=== PATIENT | male | born 1940 | race Caucasian/White ===

== ENCOUNTER 2016-11-11 15:45 | Emergency (ER) | payer MEDICARE, OTHER, SELFPAY ==
[2016-11-11 16:34] LABS: CHLORIDE,CL 105 mmol/L (98-107); SODIUM,NA 139 mmol/L (136-145)
[2016-11-11] MEDS ORDERED: Ketorolac 30 MG/ML SDV IVPUSH ONE (16:39)
[2016-11-11] MEDS ORDERED: methylPREDNISolone Sodium Succinate 125 MG/2 ML SDV IVPUSH ONE (16:40)
--- NOTE | 2016-11-11 16:46 | EDM.PDOC ---
ED HPI GENERAL MEDICAL PROBLEM - General Chief Complaint: Chest Pain Stated Complaint: chest pain Time Seen by Provider: 11/11/16 16:05 Source of Information: Reports: Patient History Limitations: Reports: No Limitations - History of Present Illness Onset: Today, Gradual Duration: Hour(s):, Intermittent Location: Reports: Chest Quality: Reports: Ache Severity: Moderate Worsens with: Reports: Other (palpation), Movement Associated Symptoms: Reports: No Other Symptoms - Related Data Allergies Allergy/AdvReac Type Severity Reaction Status Date / Time fluvoxamine Allergy Cannot Verified 11/11/16 16:20 Remember lisinopril Allergy Cannot Verified 11/11/16 16:20 Remember Penicillins Allergy Cannot Verified 11/11/16 16:20 Remember Home Meds: Home Meds Acetaminophen 650 mg PO Q4H PRN 11/11/16 [History] Albuterol Sulfate [Proair Respiclick] 2 inh INH Q6H PRN 11/11/16 [History] Bisacodyl 10 mg RECTAL DAILY PRN 11/11/16 [History] Bisacodyl [Dulcolax] 5 mg PO DAILY PRN 11/11/16 [History] Budesonide/Formoterol Fumarate [Symbicort 160-4.5 Mcg Inhaler] 2 inh INH BID [History] Cholecalciferol (Vitamin D3) [D3 Dots] 2,000 units PO DAILY 11/11/16 [History] Diltiazem HCl [Diltiazem ER] 120 mg PO DAILY 11/11/16 [History] Finasteride 5 mg PO DAILY 11/11/16 [History] Furosemide [Lasix] 80 mg PO DAILY 11/11/16 [History] Hydrocodone/Acetaminophen [Hydrocodon-Acetaminophen 5-325] 1 - 2 tab PO Q4H PRN 11/11/16 [History] Lidocaine 4% [Xylocaine 4% Top Soln] 1 dose TOP TID PRN 11/11/16 [History] Lidocaine 5% [Lidoderm 5%] 1 patch TOP DAILY PRN 11/11/16 [History] Magnesium Citrate [Citrate of Magnesia] 0.5 bottle PO BID PRN 11/11/16 [History] Magnesium Hydroxide [Milk of Magnesia] 30 ml PO BID PRN 11/11/16 [History] Methyl Salicylate/Menthol [Muscle Rub] 1 dose TOP Q6H PRN 11/11/16 [History] Metoprolol Succinate [Toprol XL] 25 mg PO DAILY 11/11/16 [History] Miconazole Nitrate 1 dose TOP BID PRN 11/11/16 [History] Omeprazole 20 mg PO DAILY 11/11/16 [History] Potassium Chloride 20 meq PO BID 11/11/16 [History] Sennosides [Senna] 1 tab PO BID 11/11/16 [History] Spironolactone [Aldactone] 25 mg PO DAILY 11/11/16 [History] Tamsulosin [Flomax] 0.4 mg PO BEDTIME 11/11/16 [History] Tiotropium [Spiriva HandiHaler] 1 inh INH DAILY 11/11/16 [History] Warfarin [Coumadin] 2.5 mg PO ASDIRECTED 11/11/16 [History] Warfarin [Coumadin] 5 mg PO DAILY 11/11/16 [History] atorvaSTATin [Lipitor] 20 mg PO BEDTIME 11/11/16 [History] buPROPion [Wellbutrin] 100 mg PO BID 11/11/16 [History] traZODone 50 mg PO BEDTIME 11/11/16 [History] ED ROS GENERAL - Review of Systems Review Of Systems: See Below Constitutional: Reports: No Symptoms HEENT: Reports: No Symptoms Respiratory: Reports: No Symptoms Cardiovascular: Reports: Chest Pain GI/Abdominal: Reports: No Symptoms Musculoskeletal: Reports: No Symptoms Skin: Reports: No Symptoms ED EXAM, GENERAL - Physical Exam Exam: See Below Exam Limited By: No Limitations General Appearance: No Apparent Distress Throat/Mouth: Normal Inspection Neck: Supple Respiratory/Chest: Lungs Clear, Other (Left chest wall tender with palpation) Cardiovascular: Regular Rate, Rhythm GI/Abdominal: Soft EKG INTERPRETATION Rhythm: a-fib (Chronic) Course - Orders/Labs/Meds Orders: Active Orders 24 hr Category Date Time Status EKG Documentation Completion [RC] ASDIRECTED Care 11/11/16 15:53 Active Chest 1V Frontal [CR] Stat Exams 11/11/16 15:53 Taken Labs: Laboratory Tests 11/11/16 11/11/16 Range/Units 15:10 16:10 WBC 9.1 (4.0-10.2) K/uL RBC 5.52 H (4.33-5.41) M/uL Hgb 15.9 D (13.1-16.8) g/dL Hct 47.6 (39.0-49.0) % MCV 86.2 (84.0-98.0) fL MCH 28.8 (28.2-33.3) pg MCHC 33.4 (31.7-36.0) g/dL RDW 15.0 H (11.2-14.1) % Plt Count 158 (150-350) K/uL Neut % (Auto) 85.5 H (45.0-80.0) % Lymph % (Auto) 6.3 L (10.0-50.0) % [place] % (Auto) 6.2 (2.0-14.0) % Eos % (Auto) 1.3 (0.0-5.0) % Baso % (Auto) 0.7 (0.0-2.0) % Neut # (Auto) 7.79 H (1.40-7.00) K/uL Lymph # (Auto) 0.57 (0.50-3.50) K/uL [place] # (Auto) 0.56 (0.00-1.00) K/uL Eos # (Auto) 0.12 (0.00-0.50) K/uL Baso # (Auto) 0.06 (0.00-0.20) K/uL Sodium 139 (136-145) mmol/L Potassium 4.7 (3.5-5.1) mmol/L Chloride 105 (98-107) mmol/L Carbon Dioxide 26.9 (21.0-32.0) mmol/L BUN 34 H (7-18) mg/dL Creatinine 1.48 H (0.51-1.17) mg/dL Est Cr Clr Drug Dosing TNP Estimated GFR (MDRD) 46 mL/min Glucose 168 H (74-106) mg/dL Calcium 8.6 (8.5-10.1) mg/dL Total Bilirubin 0.6 (0.2-1.0) mg/dL AST 13 L (15-37) U/L ALT 24 (12-78) U/L Alkaline Phosphatase 99 (46-116) IU/L Troponin I 0.015 (0.000-0.056) ng/mL Total Protein 6.8 (6.4-8.2) g/dL Albumin 3.6 (3.4-5.0) g/dL Meds: Medications Discontinued Medications Generic Name Dose Route Start Last Admin Trade Name Ness PRN Reason Stop Dose Admin Ketorolac Tromethamine 30 mg 11/11/16 16:39 Toradol IVPUSH 11/11/16 16:40 ONETIME ONE Methylprednisolone Sodium Succinate 125 mg 11/11/16 16:40 Solu-Medrol IVPUSH 11/11/16 16:41 ONETIME ONE - Re-Assessments/Exams Free Text/Narrative Re-Assessment/Exam: 11/11/16 16:44 Pt stable in ER Pt given Toradol IV and Solu-medrol IV Departure - Departure Time of Disposition: 17:00 Disposition: DC/Tfer to [place] [id number] Reason for Transfer *Q: Other Clinical Impression: Chest wall pain Instructions: Nonspecific Chest Pain, [id number] Forms: ED Department Discharge - My Orders Last 24 Hours: My Active Orders 11/11/16 15:53 EKG Documentation Completion [RC] ASDIRECTED Chest 1V Frontal [CR] Stat - Assessment/Plan Last 24 Hours: My Active Orders 11/11/16 15:53 EKG Documentation Completion [RC] ASDIRECTED Chest 1V Frontal [CR] Stat
[2016-11-11 19:21] VITALS: BP 125/90
== END 2016-11-11 17:21 ==
LOC: LL.ED 15:45
DX: R07.89 Other chest pain (principal); Z88.0 Allergy status to penicillin; Z88.8 Allergy status to other drugs, medicaments and biological substances; Z79.899 Other long term (current) drug therapy; Z79.01 Long term (current) use of anticoagulants
CPT/HCPCS: 36415; 71010; 80053; 84484; 85025; 93005; 96374; 96375; 99285; J1885; J2930; 99284

== ENCOUNTER 2017-11-17 10:58 | Emergency (ER) | payer MEDICARE, MEDICAID ==
[2017-11-17] MEDS ORDERED: Sodium Chloride 0.9% 10 ML Syringe FLUSH PRN (11:07)
[2017-11-17] MEDS ORDERED: Nitroglycerin 0.4 MG Tab.SL SL ONE (11:10)
--- NOTE | 2017-11-17 11:23 | EDM.PDOC ---
ED HPI GENERAL MEDICAL PROBLEM - General Chief Complaint: Chest Pain Stated Complaint: Chest Pain Time Seen by Provider: 11/17/17 11:09 Source of Information: Reports: Patient, Other ([place] home staff) History Limitations: Reports: Other - History of Present Illness INITIAL COMMENTS - FREE TEXT/NARRATIVE: Patient comes from [place] with complaint of left sided chest pain. Has had it before, "often", but today it is worse than usual. Can't remember how long episodes usually last, saying that they eventually "go away". No other accompanying symptoms, such as nausea/sweating/SOB. Pain is worse with taking a breath. Unable to tell us how often episodes occur, if they are triggered by anything, or improved by anything other than time. Points to middle of left anterior chest as site of pain. Thoracic Pain Score (Numeric/FACES): 10 - Related Data Allergies Allergy/AdvReac Type Severity Reaction Status Date / Time doxycycline Allergy Cannot Verified 11/17/17 11:47 Remember fluvoxamine Allergy Cannot Verified 11/17/17 11:47 Remember levofloxacin [From Levaquin] Allergy Indigestion Verified 11/17/17 11:47 lisinopril Allergy Cannot Verified 11/17/17 11:47 Remember Penicillins Allergy Cannot Verified 11/17/17 11:47 Remember Home Meds: Home Meds Acetaminophen 650 mg PO Q4H PRN 11/11/16 [History] Bisacodyl 10 mg RECTAL DAILY PRN 11/11/16 [History] Budesonide/Formoterol Fumarate [Symbicort 160-4.5 Mcg Inhaler] 2 inh INH BID [History] Cholecalciferol (Vitamin D3) [D3 Dots] 2,000 units PO DAILY 11/11/16 [History] Diltiazem HCl [Diltiazem ER] 120 mg PO DAILY 11/11/16 [History] Finasteride 5 mg PO DAILY 11/11/16 [History] Furosemide [Lasix] 80 mg PO DAILY 11/11/16 [History] Lidocaine 4% [Xylocaine 4% Top Soln] 1 dose TOP TID PRN 11/11/16 [History] Magnesium Citrate [Citrate of Magnesia] 0.5 bottle PO BID PRN 11/11/16 [History] Magnesium Hydroxide [Milk of Magnesia] 30 ml PO BID PRN 11/11/16 [History] Methyl Salicylate/Menthol [Muscle Rub] 1 dose TOP Q6H PRN 11/11/16 [History] Metoprolol Succinate [Toprol XL] 25 mg PO DAILY 11/11/16 [History] Miconazole Nitrate 1 dose TOP BID PRN 11/11/16 [History] Omeprazole 40 mg PO DAILY 11/11/16 [History] Potassium Chloride 20 meq PO BID 11/11/16 [History] Tamsulosin [Flomax] 0.4 mg PO BEDTIME 11/11/16 [History] Tiotropium [Spiriva HandiHaler] 1 inh INH DAILY 11/11/16 [History] Warfarin [Coumadin] 2.5 mg PO DAILY 11/11/16 [History] atorvaSTATin [Lipitor] 20 mg PO BEDTIME 11/11/16 [History] buPROPion [Wellbutrin] 100 mg PO BID 11/11/16 [History] traZODone 50 mg PO BEDTIME 11/11/16 [History] Benzonatate 100 mg PO TID PRN 11/17/17 [History] Docusate Sodium [Colace] 100 mg PO BID 11/17/17 [History] Gabapentin [Neurontin] 100 mg PO BID 11/17/17 [History] Mag Hydrox/Al Hydrox/Simeth [Antacid Liquid] 15 - 30 ml PO Q4H PRN 11/17/17 [ History] Sennosides/Docusate Sodium [Senna Plus Tablet] 2 tab PO BID 11/17/17 [History] Spironolactone [Aldactone] 50 mg PO DAILY 11/17/17 [History] Past Medical History HEENT History: Reports: Allergic Rhinitis, Impaired Vision, Other (See Below) Other HEENT History: color blindness Cardiovascular History: Reports: Afib, Cardiomyopathy, High Cholesterol Respiratory History: Reports: COPD, Other (See Below) Other Respiratory History: pulmonary nodule Gastrointestinal History: Reports: Chronic Constipation, Colon Polyp, GERD, Other (See Below) Other Gastrointestinal History: diaphragmatic hernia Genitourinary History: Reports: Prostate Disorder, Pyelonephritis, Renal Disease , Retention, Urinary, Urinary Incontinence, Other (See Below) Other Genitourinary History: stage 3 chronic kidney disease Musculoskeletal History: Reports: Back Pain, Chronic, Other (See Below) Other Musculoskeletal History: plantar wart, generalized weakness Neurological History: Reports: CVA, Other (See Below) Other Neuro History: cerebral infarct, hemiplegia R) side, dysphagia Psychiatric History: Reports: Dementia, Depression Endocrine/Metabolic History: Reports: Diabetes, Type II, Vitamin D Deficiency Oncologic (Cancer) History: Reports: Prostate Social & Family History - Family History Family Medical History: Noncontributory ED ROS GENERAL - Review of Systems Review Of Systems: See Below Constitutional: Reports: No Symptoms HEENT: Reports: No Symptoms Respiratory: Reports: Pleuritic Chest Pain. Denies: Shortness of Breath, Wheezing, Cough, Sputum, Hemoptysis Cardiovascular: Reports: Chest Pain. Denies: Dyspnea on Exertion, Edema, Lightheadedness, Orthopnea, Palpitations, Syncope Endocrine: Reports: No Symptoms GI/Abdominal: Reports: No Symptoms : Reports: No Symptoms Musculoskeletal: Reports: No Symptoms (no acute changes from baseline) Skin: Reports: Bruising (has bruising on forearms/hands that is old. ) Neurological: Reports: Other (no acute changes). Denies: Confusion, Dizziness, Headache, Paresthesia, Seizure, Trouble Speaking, Change in Speech Psychiatric: Reports: No Symptoms ED EXAM, GENERAL - Physical Exam Exam: See Below Exam Limited By: No Limitations General Appearance: Alert, No Apparent Distress, Obese Eye Exam: Bilateral Eye: EOMI, PERRL Ears: Normal External Exam Nose: No: Nasal Deformity, Nasal Swelling, Nasal Drainage Throat/Mouth: Normal Lips, Normal Voice, No Airway Compromise Head: Atraumatic, Normocephalic Neck: Normal Inspection, Supple, Non-Tender, Full Range of Motion Respiratory/Chest: No Respiratory Distress, Lungs Clear, Normal Breath Sounds, No Accessory Muscle Use, Other (Chest tender with palpation over left anterior mid chest. Reproduces patient's complaint. Pectus excavatum noted. ) Cardiovascular: Normal Peripheral Pulses, No Edema, Irregularly Irregular, Other (has lower extremity leg wraps in place for "pain") Peripheral Pulses: 2+: Radial (L), Radial (R) GI/Abdominal: Normal Bowel Sounds, Soft, Non-Tender, No Distention (Male) Exam: Deferred Rectal (Males) Exam: Deferred Back Exam: No: CVA Tenderness (L), CVA Tenderness (R), Muscle Spasm, Paraspinal Tenderness, Vertebral Tenderness Extremities: No Pedal Edema, Normal Capillary Refill, Other (Denies increased pain with palpation of extremities) Neurological: Alert, Oriented, Other (equal tone/strength upper and lower limbs) Psychiatric: Normal Affect, Normal Mood Skin Exam: Warm, Dry, Ecchymosis (old bruising noted around hands/forearms. ) EKG INTERPRETATION EKG Date: 11/17/17 Time: 11:15 Rhythm: A-Fib Rate (Beats/Min): 112 [place]: RAD-Right [place] Deviation P-Wave: Absent QRS: Wide ST-T: Other (No obvious acute ST depression/elevation) QT: Normal Comparison: No Change EKG Interpretation Comments: Very noisy baseline to EKG. QRS morphology has not changed when EKG is compared to one performed October 2016. Does have widened QRS/aberrantly conducted complexes. Course - Vital Signs Last Recorded V/S: Last Vital Signs Temp 36.5 C 11/17/17 11:00 Pulse 92 11/17/17 11:00 Resp 18 11/17/17 11:00 BP 100/58 L 11/17/17 12:06 Pulse Ox 97 11/17/17 11:00 - Orders/Labs/Meds Orders: Active Orders 24 hr Category Date Time Status EKG Documentation Completion [RC] ASDIRECTED Care 11/17/17 11:08 Active Chest 2V [CR] Stat Exams 11/17/17 11:07 Taken Sodium Chloride 0.9% [Saline Flush] Med 11/17/17 11:07 Active 10 ml FLUSH ASDIRECTED PRN Saline Lock Insert [OM.PC] Stat Oth 11/17/17 11:07 Ordered Medication Orders Sodium Chloride (Saline Flush) 10 ml FLUSH ASDIRECTED PRN PRN Reason: Keep Vein Open Labs: Laboratory Tests 11/17/17 11/17/17 11/17/17 Range/Units 11:10 11:10 11:10 WBC 9.9 (4.0-10.2) K/uL RBC 5.15 (4.33-5.41) M/uL Hgb 16.1 (13.1-16.8) g/dL Hct 47.5 (39.0-49.0) % MCV 92.2 (84.0-98.0) fL MCH 31.3 (28.2-33.3) pg MCHC 33.9 (31.7-36.0) g/dL RDW 14.9 H (11.2-14.1) % Plt Count 172 (150-350) K/uL Neut % (Auto) 80.7 H (45.0-80.0) % Lymph % (Auto) 11.5 (10.0-50.0) % [place] % (Auto) 6.5 (2.0-14.0) % Eos % (Auto) 0.9 (0.0-5.0) % Baso % (Auto) 0.4 (0.0-2.0) % Neut # (Auto) 8.02 H (1.40-7.00) K/uL Lymph # (Auto) 1.14 (0.50-3.50) K/uL [place] # (Auto) 0.65 (0.00-1.00) K/uL Eos # (Auto) 0.09 (0.00-0.50) K/uL Baso # (Auto) 0.04 (0.00-0.20) K/uL PT 15.2 H D (9.8-11.7) SEC INR 1.4 D-Dimer, Quantitative (0-400) ng/mL Sodium 137 (136-145) mmol/L Potassium 5.2 H (3.5-5.1) mmol/L Chloride 101 (98-107) mmol/L Carbon Dioxide 26.8 (21.0-32.0) mmol/L BUN 36 H (7-18) mg/dL Creatinine 1.35 H (0.51-1.17) mg/dL Est Cr Clr Drug Dosing TNP Estimated GFR (MDRD) 51 mL/min Glucose 121 H (74-106) mg/dL Calcium 9.3 (8.5-10.1) mg/dL Magnesium 2.3 (1.8-2.4) mg/dL Total Bilirubin 0.7 (0.2-1.0) mg/dL AST 20 (15-37) U/L ALT 48 (12-78) U/L Alkaline Phosphatase 95 (46-116) IU/L Creatine Kinase 35 (26-308) U/L Creatine Kinase Index 4.3 H (0.0-2.5) % CK-MB (CK-2) 1.50 (0.00-3.60) ng/mL Troponin I 0.000 (0.000-0.056) ng/mL NT-Pro-B Natriuret Pep 639 H (0-125) pg/mL Total Protein 7.2 (6.4-8.2) g/dL Albumin 3.7 (3.4-5.0) g/dL 11/17/17 Range/Units 11:10 WBC (4.0-10.2) K/uL RBC (4.33-5.41) M/uL Hgb (13.1-16.8) g/dL Hct (39.0-49.0) % MCV (84.0-98.0) fL MCH (28.2-33.3) pg MCHC (31.7-36.0) g/dL RDW (11.2-14.1) % Plt Count (150-350) K/uL Neut % (Auto) (45.0-80.0) % Lymph % (Auto) (10.0-50.0) % [place] % (Auto) (2.0-14.0) % Eos % (Auto) (0.0-5.0) % Baso % (Auto) (0.0-2.0) % Neut # (Auto) (1.40-7.00) K/uL Lymph # (Auto) (0.50-3.50) K/uL [place] # (Auto) (0.00-1.00) K/uL Eos # (Auto) (0.00-0.50) K/uL Baso # (Auto) (0.00-0.20) K/uL PT (9.8-11.7) SEC INR D-Dimer, Quantitative < 100 (0-400) ng/mL Sodium (136-145) mmol/L Potassium (3.5-5.1) mmol/L Chloride (98-107) mmol/L Carbon Dioxide (21.0-32.0) mmol/L BUN (7-18) mg/dL Creatinine (0.51-1.17) mg/dL Est Cr Clr Drug Dosing Estimated GFR (MDRD) mL/min Glucose (74-106) mg/dL Calcium (8.5-10.1) mg/dL Magnesium (1.8-2.4) mg/dL Total Bilirubin (0.2-1.0) mg/dL AST (15-37) U/L ALT (12-78) U/L Alkaline Phosphatase (46-116) IU/L Creatine Kinase (26-308) U/L Creatine Kinase Index (0.0-2.5) % CK-MB (CK-2) (0.00-3.60) ng/mL Troponin I (0.000-0.056) ng/mL NT-Pro-B Natriuret Pep (0-125) pg/mL Total Protein (6.4-8.2) g/dL Albumin (3.4-5.0) g/dL Meds: Medications Generic Name Dose Route Start Last Admin Trade Name Freq PRN Reason Stop Dose Admin Sodium Chloride 10 ml 11/17/17 11:07 Saline Flush FLUSH ASDIRECTED PRN Keep Vein Open Discontinued Medications Generic Name Dose Route Start Last Admin Trade Name Freq PRN Reason Stop Dose Admin Nitroglycerin 0.4 mg 11/17/17 11:10 11/17/17 12:06 Nitrostat SL 11/17/17 11:11 Not Given ONETIME ONE Prednisone 20 mg 11/17/17 11:55 11/17/17 12:07 Prednisone PO 11/17/17 11:56 20 mg ONETIME ONE Administration Sodium Polystyrene Sulfonate 15 gm 11/17/17 11:54 11/17/17 12:06 Kayexalate PO 11/17/17 11:55 15 gm ONETIME ONE Administration Warfarin Sodium 5 mg 11/17/17 11:52 11/17/17 12:07 Coumadin PO 11/17/17 11:53 5 mg ONETIME ONE Administration - Radiology Interpretation Free Text/Narrative:: chest xray shows no acute changes/infiltrates. Compared to previous filmes from four months ago. - Re-Assessments/Exams Free Text/Narrative Re-Assessment/Exam: Vital signs stable. Troponin/CKMB/Ddimer normal. CBC unremarkable. Chem showed mild renal dysfunction. Potassium 0.1 above normal limits. INR subtheraputic. Suspect musculoskeletal cause for patient's complaint. Reproducible on physical exam with palpation over left chest. Has been seen for same complaint one year ago. Again, patient says that he commonly feels discomfort in this area but it comes and goes. Given patient's renal issues, not candidate for NSAIDs. Will try dose of Prednisone today. Single dose of Kayexalate ordered for elevated potassium. Single dose of Warfarin ordered to help improve subtheraputic INR. Will need to follow up with [facility] this week in regards to ongoing K and INR monitoring as well as adjusting Warfarin dose. Patient does have pectus excavatum, and this has been linked to chest pain. This deformity may be a contributor to patient's frequent episodic chest discomfort. To follow up otherwise as needed. Departure - Departure Time of Disposition: 12:07 Disposition: DC/Tfer to SNF 03 Reason for Transfer *Q: Other (transfer back to [facility]) Condition: Good Clinical Impression: Chest wall pain, Pectus excavatum, Subtherapeutic anticoagulation, Hyperkalemia Chronic kidney disease Qualifiers: Chronic kidney disease stage: unspecified stage Qualified Code(s): N18.9 - Chronic kidney disease, unspecified Referrals: Sage-Charo Linares MD [Primary Care Provider] - Forms: ED Department Discharge Additional Instructions: Have patient take single dose of Kayexalate once he returns to [facility]. He has very mild elevation in potassium. He also has low INR and is subtheraputic. An extra dose of Warfarin was given to him in the ER today. Give him 5mg of Warfarin tomorrow instead of his usual 2.5mg daily dose. Call [facility] clinic Sunday in regards to changing future Warfarin dosing as well as scheduling follow up INRs and Potassium level checks. Patient has very frequent discomfort in left chest area per self-report. He has a pretty significant pectus excavatum deformity and this may be a contributor to the chest discomfort. Follow up with [facility] in regards to this complaint. Follow up otherwise as needed. - My Orders Last 24 Hours: My Active Orders 11/17/17 11:07 Chest 2V [CR] Stat Sodium Chloride 0.9% [Saline Flush] 10 ml FLUSH ASDIRECTED PRN Saline Lock Insert [OM.PC] Stat 11/17/17 11:08 EKG Documentation Completion [RC] ASDIRECTED - Assessment/Plan Last 24 Hours: My Active Orders 11/17/17 11:07 Chest 2V [CR] Stat Sodium Chloride 0.9% [Saline Flush] 10 ml FLUSH ASDIRECTED PRN Saline Lock Insert [OM.PC] Stat 11/17/17 11:08 EKG Documentation Completion [RC] ASDIRECTED
[2017-11-17 11:42] LABS: CHLORIDE,CL 101 mmol/L (98-107); SODIUM,NA 137 mmol/L (136-145)
[2017-11-17] MEDS ORDERED: Warfarin 5 MG Tab PO ONE (11:52)
[2017-11-17] MEDS ORDERED: Sodium Polystyrene Sulfonate 15 GM/60 ML Susp 60 ML Bot PO ONE (11:54)
[2017-11-17] MEDS ORDERED: predniSONE 20 MG Tab PO ONE (11:55)
[2017-11-17 17:43] VITALS: BP 107/48
== END 2017-11-17 13:10 ==
LOC: LL.ED 10:58
DX: R07.89 Other chest pain (principal); E78.00 Pure hypercholesterolemia, unspecified; I48.91 Unspecified atrial fibrillation; J44.9 Chronic obstructive pulmonary disease, unspecified; N18.3 Chronic kidney disease, stage 3 (moderate); E11.22 Type 2 diabetes mellitus with diabetic chronic kidney disease; Q67.6 Pectus excavatum; R79.1 Abnormal coagulation profile; E87.5 Hyperkalemia; Z88.8 Allergy status to other drugs, medicaments and biological substances; Z88.0 Allergy status to penicillin; Z79.899 Other long term (current) drug therapy; Z86.73 Personal history of transient ischemic attack (TIA), and cerebral infarction without residual deficits
CPT/HCPCS: 36415; 71046; 80053; 82550; 82553; 83735; 83880; 84484; 85025; 85379; 85610; 93005; 99285; A9270-GY

== ENCOUNTER 2017-11-24 07:39 | Emergency (ER) | payer MEDICARE, MEDICAID ==
[2017-11-24] MEDS: Albuterol/Ipratropium 3.0-0.5 MG/3 ML Neb Soln ONE (07:45)
[2017-11-24] MEDS: Sodium Chloride 0.9% 10 ML Syringe FLUSH PRN (08:23)
--- NOTE | 2017-11-24 08:33 | EDM.PDOC ---
ED HPI GENERAL MEDICAL PROBLEM - General Chief Complaint: General Stated Complaint: altered mental status Time Seen by Provider: 11/24/17 07:50 Source of Information: Reports: Patient, EMS Notes Reviewed, Longterm Records, Old Records History Limitations: Reports: Altered Mental Status, Respiratory Distress - History of Present Illness INITIAL COMMENTS - FREE TEXT/NARRATIVE: patient is a 77-year-old gentleman who arrived via ambulance from the [facility] [place] history obtained from nurses states that patient was shaking pushing forward not speakingdid not answer the nurse spitted up patient states hat he threw up but it looked more like spit would not speak was transferred to [facility] code was called at this point when we took his shirt off it was noted that he was extremely cyanotic saturations 70% patient placed on oxygen patient has multiple psych issues 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 Onset: Sudden Duration: Minutes:, Improving Location: Reports: Chest Quality: Reports: Ache Severity: Mild Improves with: Reports: Other (oxygen) Worsens with: Reports: None Context: Reports: Other (llness) Associated Symptoms: Reports: Confusion, Shortness of Breath Treatments CARE DIRECTOR: Reports: Breathing Treatments - Related Data Allergies Allergy/AdvReac Type Severity Reaction Status Date / Time doxycycline Allergy Cannot Verified 11/24/17 07:41 Remember fluvoxamine Allergy Cannot Verified 11/24/17 07:41 Remember levofloxacin [From Levaquin] Allergy Indigestion Verified 11/24/17 07:41 lisinopril Allergy Cannot Verified 11/24/17 07:41 Remember Penicillins Allergy Cannot Verified 11/24/17 07:41 Remember Home Meds: Home Meds Acetaminophen 650 mg PO Q4H PRN 11/11/16 [History] Bisacodyl 10 mg RECTAL DAILY PRN 11/11/16 [History] Budesonide/Formoterol Fumarate [Symbicort 160-4.5 Mcg Inhaler] 2 inh INH BID [History] Cholecalciferol (Vitamin D3) [D3 Dots] 2,000 units PO DAILY 11/11/16 [History] Diltiazem HCl [Diltiazem ER] 120 mg PO DAILY 11/11/16 [History] Finasteride 5 mg PO DAILY 11/11/16 [History] Furosemide [Lasix] 80 mg PO DAILY 11/11/16 [History] Lidocaine 4% [Xylocaine 4% Top Soln] 1 dose TOP TID PRN 11/11/16 [History] Magnesium Citrate [Citrate of Magnesia] 0.5 bottle PO BID PRN 11/11/16 [History] Magnesium Hydroxide [Milk of Magnesia] 30 ml PO BID PRN 11/11/16 [History] Methyl Salicylate/Menthol [Muscle Rub] 1 dose TOP Q6H PRN 11/11/16 [History] Metoprolol Succinate [Toprol XL] 25 mg PO DAILY 11/11/16 [History] Miconazole Nitrate 1 dose TOP BID PRN 11/11/16 [History] Omeprazole 40 mg PO DAILY 11/11/16 [History] Potassium Chloride 20 meq PO BID 11/11/16 [History] Tamsulosin [Flomax] 0.4 mg PO BEDTIME 11/11/16 [History] Tiotropium [Spiriva HandiHaler] 1 inh INH DAILY 11/11/16 [History] Warfarin [Coumadin] 2.5 mg PO DAILY 11/11/16 [History] atorvaSTATin [Lipitor] 20 mg PO BEDTIME 11/11/16 [History] buPROPion [Wellbutrin] 100 mg PO BID 11/11/16 [History] traZODone 50 mg PO BEDTIME 11/11/16 [History] Benzonatate 100 mg PO TID PRN 11/17/17 [History] Docusate Sodium [Colace] 100 mg PO BID 11/17/17 [History] Gabapentin [Neurontin] 100 mg PO BID 11/17/17 [History] Mag Hydrox/Al Hydrox/Simeth [Antacid Liquid] 15 - 30 ml PO Q4H PRN 11/17/17 [ History] Sennosides/Docusate Sodium [Senna Plus Tablet] 2 tab PO BID 11/17/17 [History] Spironolactone [Aldactone] 50 mg PO DAILY 11/17/17 [History] Past Medical History HEENT History: Reports: Allergic Rhinitis, Impaired Vision, Other (See Below) Other HEENT History: color blindness Cardiovascular History: Reports: Afib, Cardiomyopathy, High Cholesterol Respiratory History: Reports: COPD, Other (See Below) Other Respiratory History: pulmonary nodule Gastrointestinal History: Reports: Chronic Constipation, Colon Polyp, GERD, Other (See Below) Other Gastrointestinal History: diaphragmatic hernia Genitourinary History: Reports: Prostate Disorder, Pyelonephritis, Renal Disease , Retention, Urinary, Urinary Incontinence, Other (See Below) Other Genitourinary History: stage 3 chronic kidney disease Musculoskeletal History: Reports: Back Pain, Chronic, Other (See Below) Other Musculoskeletal History: plantar wart, generalized weakness Neurological History: Reports: CVA, Other (See Below) Other Neuro History: cerebral infarct, hemiplegia R) side, dysphagia Psychiatric History: Reports: Dementia, Depression Endocrine/Metabolic History: Reports: Diabetes, Type II, Vitamin D Deficiency Oncologic (Cancer) History: Reports: Prostate Social & Family History - Family History Family Medical History: Noncontributory - Caffeine Use Caffeine Use: Reports: Coffee ED ROS GENERAL - Review of Systems Review Of Systems: See Below Constitutional: Reports: No Symptoms HEENT: Reports: No Symptoms Respiratory: Reports: Shortness of Breath Cardiovascular: Reports: No Symptoms Endocrine: Reports: No Symptoms GI/Abdominal: Reports: No Symptoms : Reports: No Symptoms Musculoskeletal: Reports: No Symptoms Skin: Reports: Cyanosis (central) Neurological: Reports: Confusion, Trouble Speaking, Weakness Psychiatric: Reports: Agitation, Suicidal Ideation Hematologic/Lymphatic: Reports: No Symptoms Immunologic: Reports: No Symptoms ED EXAM, GENERAL - Physical Exam Exam: See Below Exam Limited By: Respiratory Distress General Appearance: WD/WN, Obtunded, Moderate Distress Ears: Normal External Exam, Normal Canal Nose: Normal Inspection, Normal Mucosa, No Blood Throat/Mouth: Normal Inspection, Normal Lips, Normal Teeth, Normal Gums, Normal Oropharynx, Normal Voice, No Airway Compromise Head: Atraumatic, Normocephalic Neck: Supple, Non-Tender, Full Range of Motion Respiratory/Chest: Lungs Clear, Decreased Breath Sounds, Wheezing Cardiovascular: Irregularly Irregular GI/Abdominal: Normal Bowel Sounds, Soft, Non-Tender, No Organomegaly, No Distention, No Abnormal Bruit, No Mass (Male) Exam: Deferred Rectal (Males) Exam: Deferred Extremities: Normal Inspection, Normal Range of Motion, Non-Tender, Normal Capillary Refill, No Pedal Edema Neurological: Alert, Oriented, CN II-XII Intact Psychiatric: Depressed Mood, Flat Affect Skin Exam: Warm, Dry, Cyanosis, Mottled (p to his chestu) Course - Vital Signs Last Recorded V/S: Last Vital Signs Temp 97.2 F 11/24/17 07:48 Pulse 104 H 11/24/17 07:48 Resp 19 11/24/17 07:48 BP 134/94 H 11/24/17 07:48 Pulse Ox 70 L 11/24/17 07:48 - Orders/Labs/Meds Orders: Active Orders 24 hr Category Date Time Status EKG Documentation Completion [RC] ASDIRECTED Care 11/24/17 08:02 Ordered Oxygen Therapy [RC] PRN Care 11/24/17 07:58 Ordered Pulse Oximetry [RC] CONTINUOUS Care 11/24/17 07:58 Ordered Chest 1V Frontal [CR] Stat Exams 11/24/17 08:02 Ordered UA W/MICROSCOPIC [URIN] Stat Lab 11/24/17 07:59 Ordered Sodium Chloride 0.9% [Saline Flush] Med 11/24/17 08:01 Ordered 10 ml FLUSH ASDIRECTED PRN Saline Lock Insert [OM.PC] Stat Oth 11/24/17 07:58 Ordered EKG 12 Lead [EK] Stat Ther 11/24/17 07:58 Ordered Medication Orders Sodium Chloride (Saline Flush) 10 ml FLUSH ASDIRECTED PRN PRN Reason: Keep Vein Open Labs: Laboratory Tests 11/24/17 11/24/17 Range/Units 07:57 08:02 WBC 16.6 H (4.0-10.2) K/uL RBC 5.34 (4.33-5.41) M/uL Hgb 16.9 H (13.1-16.8) g/dL Hct 48.7 (39.0-49.0) % MCV 91.2 (84.0-98.0) fL MCH 31.6 (28.2-33.3) pg MCHC 34.7 (31.7-36.0) g/dL RDW 14.8 H (11.2-14.1) % Plt Count 196 (150-350) K/uL Neut % (Auto) 85.5 H (45.0-80.0) % Lymph % (Auto) 11.1 (10.0-50.0) % [place] % (Auto) 2.5 (2.0-14.0) % Eos % (Auto) 0.7 (0.0-5.0) % Baso % (Auto) 0.2 (0.0-2.0) % Neut # (Auto) 14.14 H (1.40-7.00) K/uL Lymph # (Auto) 1.84 (0.50-3.50) K/uL [place] # (Auto) 0.41 (0.00-1.00) K/uL Eos # (Auto) 0.12 (0.00-0.50) K/uL Baso # (Auto) 0.04 (0.00-0.20) K/uL Sodium 136 (136-145) mmol/L Potassium 5.5 H (3.5-5.1) mmol/L Chloride 100 (98-107) mmol/L Carbon Dioxide 26.0 (21.0-32.0) mmol/L BUN 44 H (7-18) mg/dL Creatinine 1.48 H (0.51-1.17) mg/dL Est Cr Clr Drug Dosing 44.42 mL/min Estimated GFR (MDRD) 46 mL/min Glucose 137 H (74-106) mg/dL Calcium 9.3 (8.5-10.1) mg/dL Total Bilirubin 0.7 (0.2-1.0) mg/dL AST 14 L (15-37) U/L ALT 32 (12-78) U/L Alkaline Phosphatase 86 (46-116) IU/L Troponin I 0.000 (0.000-0.056) ng/mL NT-Pro-B Natriuret Pep 811 H (0-125) pg/mL Total Protein 7.2 (6.4-8.2) g/dL Albumin 3.7 (3.4-5.0) g/dL Meds: Medications Generic Name Dose Route Start Last Admin Trade Name Freq PRN Reason Stop Dose Admin Sodium Chloride 10 ml 11/24/17 08:01 Saline Flush FLUSH ASDIRECTED PRN Keep Vein Open Discontinued Medications Generic Name Dose Route Start Last Admin Trade Name Freq PRN Reason Stop Dose Admin Albuterol/Ipratropium Confirm 11/24/17 07:43 Duoneb 3.0-0.5 Mg/3 Ml Administered 11/24/17 07:44 Dose 3 ml .ROUTE .STK-MED ONE Departure - Departure Time of Disposition: 08:45 Disposition: DC/Tfer to SNF 03 Clinical Impression: Chronic obstructive pulmonary disease Qualifiers: COPD type: unspecified COPD Qualified Code(s): J44.9 - Chronic obstructive pulmonary disease, unspecified - Discharge Information Instructions: Chronic Obstructive Pulmonary Disease Exacerbation, [id number] Care Plan Goals: patient sent home on DuoNeb every 6 hours and when necessary O2 2 L nasal cannula may wean down as indicated - My Orders Last 24 Hours: My Active Orders 11/24/17 07:58 Oxygen Therapy [RC] PRN Pulse Oximetry [RC] CONTINUOUS Saline Lock Insert [OM.PC] Stat EKG 12 Lead [EK] Stat 11/24/17 07:59 UA W/MICROSCOPIC [URIN] Stat 11/24/17 08:01 Sodium Chloride 0.9% [Saline Flush] 10 ml FLUSH ASDIRECTED PRN 11/24/17 08:02 EKG Documentation Completion [RC] ASDIRECTED Chest 1V Frontal [CR] Stat - Assessment/Plan Last 24 Hours: My Active Orders 11/24/17 07:58 Oxygen Therapy [RC] PRN Pulse Oximetry [RC] CONTINUOUS Saline Lock Insert [OM.PC] Stat EKG 12 Lead [EK] Stat 11/24/17 07:59 UA W/MICROSCOPIC [URIN] Stat 11/24/17 08:01 Sodium Chloride 0.9% [Saline Flush] 10 ml FLUSH ASDIRECTED PRN 11/24/17 08:02 EKG Documentation Completion [RC] ASDIRECTED Chest 1V Frontal [CR] Stat
[2017-11-24 09:17] VITALS: BP 95/46
== END 2017-11-24 09:17 ==
LOC: LL.ED 07:39
DX: J44.9 Chronic obstructive pulmonary disease, unspecified (principal); N18.3 Chronic kidney disease, stage 3 (moderate); E11.22 Type 2 diabetes mellitus with diabetic chronic kidney disease; K21.9 Gastro-esophageal reflux disease without esophagitis; E78.00 Pure hypercholesterolemia, unspecified; Z86.73 Personal history of transient ischemic attack (TIA), and cerebral infarction without residual deficits; Z88.1 Allergy status to other antibiotic agents; Z88.0 Allergy status to penicillin; Z79.899 Other long term (current) drug therapy; Z79.01 Long term (current) use of anticoagulants
CPT/HCPCS: 36000; 36415; 71045; 80053; 83880; 84484; 85025; 93005; 94640; 94761; 99285; J7050